=== PATIENT | male | born 1970 | race Two or more races ===

== ENCOUNTER 2018-12-23 20:09 | Inpatient (IN) | payer OTHER ==
[~2018-12-23] VITALS: Ht 177.8 cm; Wt 104.3 kg
[~2018-12-23 20:09] MED LIST: ASPIR 8181 MG; ATIVAN0.5 M1; HUMALOG MIX 75/23 ML SQ; METFORMIN HCL850 MG PO; PROZAC20 MG; SIMVASTATIN20 MG
== END 2019-01-08 21:27 | disposition home or self-care (01) | DRG 475 ==
LOC: ER 20:09 → MEDJ 12-24 11:50
PROVIDERS: ADMIT Internal Medicine
PROC: 0Y6M0Z0 Detachment at Right Foot, Complete, Open Approach (ICD-10-PCS; principal; 2018-12-24)
DX: M86.671 Other chronic osteomyelitis, right ankle and foot (principal); L97.518 Non-pressure chronic ulcer of other part of right foot with other specified severity; L03.115 Cellulitis of right lower limb; E87.1 Hypo-osmolality and hyponatremia; A52.16 Charcot's arthropathy (tabetic); E11.621 Type 2 diabetes mellitus with foot ulcer; E11.65 Type 2 diabetes mellitus with hyperglycemia; E11.69 Type 2 diabetes mellitus with other specified complication; E11.42 Type 2 diabetes mellitus with diabetic polyneuropathy; B95.61 Methicillin susceptible Staphylococcus aureus infection as the cause of diseases classified elsewhere; B96.5 Pseudomonas (aeruginosa) (mallei) (pseudomallei) as the cause of diseases classified elsewhere; B96.7 Clostridium perfringens [C. perfringens] as the cause of diseases classified elsewhere; B96.29 Other Escherichia coli [E. coli] as the cause of diseases classified elsewhere; I10 Essential (primary) hypertension; E78.49 Other hyperlipidemia; Z79.4 Long term (current) use of insulin; Z89.422 Acquired absence of other left toe(s); Z89.421 Acquired absence of other right toe(s)